=== PATIENT | male | born 1940 | race Caucasian/White ===

== ENCOUNTER 2019-04-20 10:39 | Observation (INO) | payer OTHER ==
[2019-04-20 11:06] LABS: Absolute Lymphocytes (CBC) 2.2 K/uL (0.7-4.9); Eosinophils % 1.3 % (0-4.4); Hematocrit 44.3 % (39.6-49.0); Lymphocytes % 23.9 % (15.3-44.8); MPV 10.2 fL (7.6-11.3); Monocytes % 6.6 % (3.3-12.3); RBC Red Blood Cell Count 4.54 M/uL (4.33-5.43)
[2019-04-20] MEDS ORDERED: ONDANSETRON 4 MG/2 ML VIAL ONE (11:14)
[2019-04-20] MEDS ORDERED: NA CHLORIDE 0.9% 500 ML ONE (11:14)
[2019-04-20] MEDS ORDERED: ATROPINE SULF 1 MG/10 ML SYR IV ONE (11:14)
[2019-04-20 11:24] LABS: BUN Blood Urea Nitrogen 22 mg/dL (7-18); Bicarbonate 29 mmol/L (21-32); Glucose Level 117 mg/dL (74-106); Potassium 3.9 mmol/L (3.5-5.1); Sodium Level 142 mmol/L (136-145)
[2019-04-20 11:25] LABS: Magnesium 2.3 mg/dL (1.8-2.4); NT PRO-BNP 1280 pg/mL (<450); Troponin (Emerg Dept Use Only) < 0.02 ng/mL (0.0-0.045)
--- NOTE | 2019-04-20 11:48 | EDPHYS ---
Physician Documentation [facility] Name: Robert Mckenzie Age: 78 yrs Sex: Male : 1940 Arrival Date: 04/20/2019 Time: 10:43 Bed 20 Private MD: ED Physician Robb Gil HPI: 04/20 10:56 This 78 yrs old Male presents to ER via EMS with complaints of dizziness, low er rn rate. 10:56 The patient presents with dizziness, feeling faint. Onset: The symptoms/episode rn began/occurred this morning. Context: occurred at home, occurred while the patient was standing. Modifying factors: The symptoms are alleviated by nothing, the symptoms are aggravated by nothing. Severity of symptoms: At their worst the symptoms were moderate in the emergency department the symptoms have improved. The patient has not experienced similar symptoms in the past. Reports dizziness upon getting out of bed, lightheaded, feels like was going to pass out, improved now, has afib and takes medication for it, no recent changes in medication, took his metoprolol this AM. . Historical: - Allergies: 10:50 Levaquin; la1 - Home Meds: 11:33 Eliquis 5 mg oral tab 1 tab 2 times per day [Active]; metoprolol tartrate 100 mg Oral tw2 tab 1 tab 2 times per day [Active]; prednisone 5 mg Oral tab once daily [Active]; Zytiga 250 mg oral tab 4 tabs once daily [Active]; - PMHx: 11:33 Atrial Fib; Hypertension; Prostate cancer; tw2 - Immunization history:: Adult Immunizations up to date. - Social history:: Smoking status: Patient/guardian denies using tobacco. - Ebola Screening: : No symptoms or risks identified at this time. - Family history:: not pertinent. - Hospitalizations: : No recent hospitalization is reported. ROS: 10:58 Constitutional: Negative for fever, chills, and weight loss, Eyes: Negative for injury, rn pain, redness, and discharge, Neck: Negative for injury, pain, and swelling, Cardiovascular: Negative for chest pain, palpitations, and edema, Respiratory: Negative for shortness of breath, cough, wheezing, and pleuritic chest pain, Abdomen/GI: + nausea, negative for abd pain MS/Extremity: Negative for injury and deformity, Skin: Negative for injury, rash, and discoloration, Neuro: + generalized weakness, no focal abnormality Exam: 10:58 Constitutional: This is a well developed, well nourished patient who is awake, alert, rn and in no acute distress. Head/Face: Normocephalic, atraumatic. Eyes: Pupils equal round and reactive to light, extra-ocular motions intact. Lids and lashes normal. Conjunctiva and sclera are non-icteric and not injected. Cornea within normal limits. Periorbital areas with no swelling, redness, or edema. ENT: MMM Cardiovascular: Irregular, bradycardic, no murmur Respiratory: Lungs have equal breath sounds bilaterally, clear to auscultation. No increased work of breathing, no retractions or nasal flaring. Abdomen/GI: soft, non-tender MS/ Extremity: Pulses equal, no cyanosis. Neurovascular intact. Full, normal range of motion. Equal circumference. Neuro: Awake and alert, GCS 15, oriented to person, place, time, and situation. Cranial nerves II-XII grossly intact. Motor strength 5/5 in all extremities. Sensory grossly intact. Cerebellar exam normal. Vital Signs: 10:50 BP 176 / 76; Pulse 42; Resp 16; Pulse Ox 94% on R/A; la1 11:09 BP 152 / 48; Pulse 46; Resp 19; Temp 98.6; Pulse Ox 94% on R/A; tw2 11:10 Pulse Ox 91% on R/A; tw2 11:25 BP 152 / 48; Pulse 55; Resp 17; Pulse Ox 97% on 2 lpm NC; tw2 11:45 BP 165 / 65; Pulse 63; Resp 17; Pulse Ox 97% on 2 lpm NC; tw2 12:02 BP 145 / 55; Pulse 46; Resp 16; Pulse Ox 96% on 2 lpm NC; tw2 12:33 BP 152 / 67; Pulse 50; Resp 17; Pulse Ox 100% on 2 lpm NC; tw2 12:58 BP 142 / 59; Pulse 47; Resp 17; Pulse Ox 98% on 2 lpm NC; tw2 11:10 pt placed on 2L nc at this time, will continue to monitor tw2 MDM: 10:44 Patient medically screened. rn 11:39 ED course: COnsulted with Dr. Bonilla, requests consult with cardiology prior to kinesiology internship. . 11:45 ED course: Consulted with Dr. Mendiola, states does not sound like needs pacemaker at rn this point, would admit and let medication wear off, and reeval. Dr. Bonilla contacted again and will admit. . 11:46 Differential diagnosis: cardiac arrhythmia, hypovolemia, idiopathic dizziness, rn near-syncope, symptomatic bradycardia. Data reviewed: vital signs, nurses notes, lab test result(s), and as a result, I will admit patient. Counseling: I had a detailed discussion with the patient and/or guardian regarding: the historical points, exam findings, and any diagnostic results supporting the discharge/admit diagnosis, lab results, the need for further work-up and treatment in the hospital. Response to treatment: the patient's symptoms have mildly improved after treatment, and as a result, I will admit patient. ED course: . 04/20 10:53 Order name: CBC with Diff; Complete Time: 11: rn 04/20 10:53 Order name: Basic Metabolic Panel; Complete Time: 11: rn 04/20 10:53 Order name: Troponin (emerg Dept Use Only); Complete Time: 11: rn 04/20 10:53 Order name: N-Terminal Pro-brain Natriuretic Peptide; Complete Time: 11: rn 04/20 10:53 Order name: Magnesium; Complete Time: 11: rn 04/20 12:49 Order name: Urine Dipstick--Ancillary (enter results) em1 04/20 10:53 Order name: IV Start; Complete Time: 11:02 rn 04/20 10:53 Order name: EKG; Complete Time: 10:53 rn 04/20 10:53 Order name: EKG - Nurse/Tech; Complete Time: 10:57 rn 04/20 11:14 Order name: EKG Electrocardiogram EDDC 04/20 13:05 Order name: Urine Dipstick-Ancillary EDDC 04/20 10:53 Order name: Monitor; Complete Time: 10:57 rn Administered Medications: 11:00 Drug: Zofran 4 mg Route: IVP; Site: right antecubital; tw2 12:34 Follow up: Response: No adverse reaction; Nausea is decreased tw2 11:02 Drug: Atropine 0.5 mg Route: IVP; Site: right antecubital; tw2 11:30 Follow up: Response: No adverse reaction tw2 11:07 Drug: NS 0.9% 500 ml Route: IV; Rate: bolus; Site: right antecubital; tw2 12:33 Follow up: Response: No adverse reaction; IV Status: Completed infusion; IV Intake: tw2 500ml Disposition: 04/20/19 11:47 Hospitalization ordered by Filipe Bonilla for Observation. Preliminary diagnosis are Bradycardia, unspecified, Dehydration, Near Syncope. - Bed requested for Telemetry/MedSurg (observation). - Status is Observation. tw2 - Condition is Stable. - Problem is new. - Symptoms have improved. UTI on Admission? No Signatures: Dispatcher [employer] EDMS Robb Gil MD MD rn Martinez, Eric em1 Rick Burns RN RN la1 Venessa Perez RN RN tw2 Corrections: (The following items were deleted from the chart) 12:35 11:47 Hospitalization Ordered by Filipe Bonilla MD for Observation. Preliminary diagnosis em1 is Bradycardia, unspecified; Dehydration; Near Syncope. Bed requested for Telemetry/MedSurg (observation). Status is Observation. Condition is Stable. Problem is new. Symptoms have improved. UTI on Admission? No. rn 13:22 12:35 04/20/2019 11:47 Hospitalization Ordered by Filipe Bonilla MD for Observation. tw2 Preliminary diagnosis is Bradycardia, unspecified; Dehydration; Near Syncope. Bed requested for Telemetry/MedSurg (observation). Status is Observation. Condition is Stable. Problem is new. Symptoms have improved. UTI on Admission? No. em1
--- NOTE | 2019-04-20 11:48 | ER ---
Nurse's Notes [facility] Name: Robert Mckenzie Age: 78 yrs Sex: Male : 1940 Arrival Date: 04/20/2019 Time: 10:43 Bed 20 Private MD: Diagnosis: Bradycardia, unspecified;Dehydration;Near Syncope Presentation: 04/20 10:49 Presenting complaint: Patient states: I was feeling really dizzy at home, EMS reports la1 HR in the 40s. Transition of care: patient was not received from another setting of care. Onset of symptoms was April 20, 2019. Risk Assessment: Do you want to hurt yourself or someone else? Patient reports no desire to harm self or others. Initial Sepsis Screen: Does the patient meet any 2 criteria? No. Patient's initial sepsis screen is negative. Does the patient have a suspected source of infection? No. Patient's initial sepsis screen is negative. Care prior to arrival: None. 10:49 Method Of Arrival: EMS: [facility] la1 10:49 Acuity: JOSEPH 2 la1 Triage Assessment: 10:53 General: Appears in no apparent distress. Behavior is appropriate for age. Pain: Denies tw2 pain. Historical: - Allergies: 10:50 Levaquin; la1 - Home Meds: 11:33 Eliquis 5 mg oral tab 1 tab 2 times per day [Active]; metoprolol tartrate 100 mg Oral tw2 tab 1 tab 2 times per day [Active]; prednisone 5 mg Oral tab once daily [Active]; Zytiga 250 mg oral tab 4 tabs once daily [Active]; - PMHx: 11:33 Atrial Fib; Hypertension; Prostate cancer; tw2 - Immunization history:: Adult Immunizations up to date. - Social history:: Smoking status: Patient/guardian denies using tobacco. - Ebola Screening: : No symptoms or risks identified at this time. - Family history:: not pertinent. - Hospitalizations: : No recent hospitalization is reported. Screenin:52 Abuse screen: Denies threats or abuse. Nutritional screening: No deficits noted. tw2 Tuberculosis screening: No symptoms or risk factors identified. Fall Risk Secondary diagnosis (15 points) impaired mobility. Assessment: 10:50 General: Appears in no apparent distress. Behavior is calm, cooperative, appropriate tw2 for age. Pain: Denies pain. Neuro: Reports dizziness. Cardiovascular: Heart tones S1 S2 Patient's skin is warm and dry. Respiratory: Airway is patent Respiratory effort is even, unlabored, Respiratory pattern is regular, symmetrical, Breath sounds are clear bilaterally. GI: Abdomen is flat, Bowel sounds present X 4 quads. GI: Reports nausea. : No signs and/or symptoms were reported regarding the genitourinary system. EENT: No signs and/or symptoms were reported regarding the EENT system. Derm: Skin is dry. Musculoskeletal: Range of motion: intact in all extremities. 11:25 Reassessment: Patient appears in no apparent distress at this time. Patient and/or tw2 family updated on plan of care and expected duration. Pain level reassessed. Patient states feeling better. 11:45 Reassessment: Patient appears in no apparent distress at this time. Patient and/or tw2 family updated on plan of care and expected duration. Pain level reassessed. Patient states feeling better. 12:09 Reassessment: Patient appears in no apparent distress at this time. No changes from tw2 previously documented assessment. Patient and/or family updated on plan of care and expected duration. Pain level reassessed. Vital Signs: 10:50 BP 176 / 76; Pulse 42; Resp 16; Pulse Ox 94% on R/A; la1 11:09 BP 152 / 48; Pulse 46; Resp 19; Temp 98.6; Pulse Ox 94% on R/A; tw2 11:10 Pulse Ox 91% on R/A; tw2 11:25 BP 152 / 48; Pulse 55; Resp 17; Pulse Ox 97% on 2 lpm NC; tw2 11:45 BP 165 / 65; Pulse 63; Resp 17; Pulse Ox 97% on 2 lpm NC; tw2 12:02 BP 145 / 55; Pulse 46; Resp 16; Pulse Ox 96% on 2 lpm NC; tw2 12:33 BP 152 / 67; Pulse 50; Resp 17; Pulse Ox 100% on 2 lpm NC; tw2 12:58 BP 142 / 59; Pulse 47; Resp 17; Pulse Ox 98% on 2 lpm NC; tw2 11:10 pt placed on 2L nc at this time, will continue to monitor tw2 ED Course: 10:43 Patient arrived in ED. iw 10:44 Robb Gil MD is Attending Physician. rn 10:47 Venessa Perez, RN is Primary Nurse. tw2 10:49 Bed in low position. Call light in reach. Side rails up X2. school lunch monitor on. Pulse tw2 ox on. NIBP on. 10:50 Triage completed. la1 10:50 Arm band placed on left wrist. EKG completed in triage. Results shown to MD. la1 11:02 Initial lab(s) drawn, by me, sent to lab. Inserted saline lock: 20 gauge in right ms antecubital area, using aseptic technique. Blood collected. Missed attempt(s): 20 gauge in right forearm. Bleeding controlled, band aid applied, catheter tip intact. 11:11 EKG done, by ED staff, reviewed by Robb Gil MD. tc 11:47 Filipe Bonilla MD is Hospitalizing Provider. rn 12:56 No provider procedures requiring assistance completed. Patient admitted, IV remains in tw2 place. Administered Medications: 11:00 Drug: Zofran 4 mg Route: IVP; Site: right antecubital; tw2 12:34 Follow up: Response: No adverse reaction; Nausea is decreased tw2 11:02 Drug: Atropine 0.5 mg Route: IVP; Site: right antecubital; tw2 11:30 Follow up: Response: No adverse reaction tw2 11:07 Drug: NS 0.9% 500 ml Route: IV; Rate: bolus; Site: right antecubital; tw2 12:33 Follow up: Response: No adverse reaction; IV Status: Completed infusion; IV Intake: tw2 500ml Intake: 12:33 IV: 500ml; Total: 500ml. tw2 Outcome: 11:47 Decision to Hospitalize by Provider. rn 12:57 Admitted to Med/surg accompanied by tech, via wheelchair, room 425, with oxygen, with tw2 chart, Report called to MYLES Escoto 12:57 Condition: stable 12:57 Instructed on the need for admit. 13:22 Patient left the ED. tw2 Signatures: Disha Lord RN RN iw Solis, Maria ms Nieto, Roman, MD MD rn Callis, Tiffany, custom harvester EKG Ttc Rick Burns RN RN la1 Venessa Perez RN RN tw2
[2019-04-20 12:59] LABS: Urine Blood 2+ (NEG); Urine Glucose NEGATIVE (NEG); Urine Protein NEGATIVE (NEG); Urine Specific Gravity 1.015 (1.005-1.030); Urine pH 5.5 (5.0-7.0)
[2019-04-20] MEDS ORDERED: ONDANSETRON 4 MG/2 ML VIAL IV PRN (12:59)
[2019-04-20 13:40] VITALS: BMI 26.4
[2019-04-20] MEDS: NA CHLORIDE 0.9% 1,000 ML IV SCH ×2 (13:47→23:16)
--- NOTE | 2019-04-20 14:51 | P.SSS ---
Patient History Date of Service: 04/20/19 Reason for admission: LOW HR. 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 HE TOOK HIS USUAL DOSE OF METOPROLOL AND ELIQUIS BUT HAD WEAK EPISODE AND HR DROPPED TO 30. IN ER THEY GAVE HIM ATROPIN AND HR NOW IS 40. HE IS STILL WEAK AND DIZZY. Allergies levofloxacin [From Levaquin] Allergy (Severe, Verified 01/26/12 00:05) Anaphylaxis Home Medications: Abiraterone Acetate [Zytiga] 1,000 mg PO 1200 04/20/19 Apixaban [Eliquis] 5 mg PO BID 04/20/19 Metoprolol Tartrate [Lopressor] 100 mg PO BID 04/20/19 predniSONE [Deltasone] 5 mg PO DAILY 04/20/19 - Past Medical/Surgical History Has patient received pneumonia vaccine in the past: Yes Diabetic: No -: afib -: htn -: prostate cancer - Social History Smoking Status: Former smoker Alcohol use: No CD- Drugs: Yes Caffeine use: Yes Place of Residence: Home Review of Systems 10-point ROS is otherwise unremarkable General: Weakness, Malaise Physical Examination - Vital Signs Temperature: 98.6 F Blood Pressure: 142/59 Pulse: 47 Respirations: 17 - Physical Exam General: Mild distress HEENT: Atraumatic, PERRLA, Mucous membr. moist/pink, EOMI, Sclerae nonicteric Neck: Supple, 2+ carotid pulse no bruit, No LAD, Without JVD or thyroid abnormality Respiratory: Clear to auscultation bilaterally, Normal air movement Cardiovascular: Regular rate/rhythm, Normal S1 S2 Gastrointestinal: Normal bowel sounds, No tenderness Musculoskeletal: No tenderness Integumentary: No rashes Neurological: Normal gait, Normal speech, Normal strength at 5/5 x4 extr, Normal tone, Normal affect Lymphatics: No axilla or inguinal lymphadenopathy - Studies Laboratory Data (last 24 hrs) 04/20/19 10:59: Sodium 142, Potassium 3.9, BUN 22 H, Creatinine 0.80, Glucose 117 H, Magnesium 2.3 04/20/19 10:59: WBC 9.1, Hgb 14.8, Hct 44.3, Plt Count 153 - Diagnosis (Problem(s)) (1) A-fib Current Visit: Yes Status: Acute Plan: ON MEDS ALREADY BUT NOT ABLE TO TOLERATE BETA MILLI. Qualifiers: Atrial fibrillation type: chronic Qualified Code(s): I48.2 - Chronic atrial fibrillation (2) Bradycardia Current Visit: Yes Status: Acute Plan: DR. MEDRANO CALLED IN. MAY NOT DO WELL WITH B MILLI. WILL FU WITHOUT IT. IF HIGH RATE MAY NEED FURTHER EPS EVAL. - Disposition Disposition: ROUTINE DISCHARGE
--- NOTE | 2019-04-20 15:02 | EKG ---
Test Date: 2019-04-20 Test Time: 10:47:49 Visual Merchandising Director: LA MEASUREMENT RESULTS: Intervals: Rate: 42 MT: 148 QRSD: 80 QT: 506 QTc: 422 [place]: P: 105 MT: 148 QRS: 53 T: 56 INTERPRETIVE STATEMENTS: Marked sinus bradycardia with premature atrial complexes in a pattern of bigeminy Nonspecific ST abnormality Abnormal ECG Compared to ECG 04/20/2019 10:45:55 No significant changes Electronically Signed On 04-20-19 15:00:53 CDT by Wilbert Mendiola
--- NOTE | 2019-04-20 15:02 | EKG ---
Test Date: 2019-04-20 Test Time: 10:45:55 Hand Slitter: LA MEASUREMENT RESULTS: Intervals: Rate: 46 CO: 142 QRSD: 80 QT: 510 QTc: 446 [place]: P: 39 CO: 142 QRS: 52 T: 55 INTERPRETIVE STATEMENTS: Sinus bradycardia with premature atrial complexes Nonspecific ST and T wave abnormality Abnormal ECG Compared to ECG 01/25/2012 20:46:23 ST (T wave) deviation now present Sinus rhythm no longer present Ventricular premature complex(es) no longer present Electronically Signed On 04-20-19 15:00:57 CDT by Wilbert Mendiola
[2019-04-20 20:01] LABS: T3 Free 2.49 pg/mL (2.18-3.98)
--- NOTE | 2019-04-20 20:31 | CON ---
Chief Complaint: Numbness and tingling and other symptoms of hypotension. History Of Present Illness: Mr. Mckenzie is a gentleman, who has prostate cancer, under control. He is on some newer prostate cancer treatments, seems to be in a stage remission right now. He has had chronic atrial fib, although he is not in AFib now, in fact the first EKG that he has not been in AF ib since about 2016 is the one today. He takes metoprolol succinate 100 mg twice a day and Eliquis f or his AFib. He has been doing that for some time that was required to keep his heart rate okay when he was in AFib. He is in sinus rhythm. His heart rate is extremely slow in the high 30s. His last dose of metoprolol was this morning 100 mg metoprolol succinate. We will stop any further metoprolo l and see what happens with his rhythm. The best thing would be for him to go back in AFib, but at t his point, I think he seemed to be more stable. Physical Examination: General: He is 6 feet 1 inch tall, 200 pounds. Alert, oriented, pleasant, appears to be older than his stated age of 78. Poor dentition. Lungs: Clear. Heart: Rhythm is regular, but some premature beats and a pause. The pause sometimes reach up 2 seco nds in duration. There is no significant murmur or rub. Abdomen: Soft. Extremities: Reveal no significant edema. Distal pulses are palpable. Laboratory Data: His creatinine is 0.8. Troponin less than 0.02. His EKG does not show infarction, injury, or ischemia. It does show sinus bradycardia with PACs and long pauses. Impression: The patient will probably be intolerant of beta-blockers. We may end up getting a pacem sudha and better treat his atrial fibrillation, but at the present time, we need a day or 2 just to se e if he can get his heart rate up in sinus rhythm and we will see just what needs to be done and a li ttle bit more time to see exactly what is going on. We should check a set of thyroid tests on him as well. LIZETH/MOISE Voice ID: [id number] Report ID: [id number]
[2019-04-20] MEDS: APIXABAN 5 MG TABLET PO SCH (21:11)
[2019-04-21 06:06] LABS: Absolute Lymphocytes (CBC) 2.2 K/uL (0.7-4.9); Basophils % 0.7 % (0-1.3); Eosinophils % 1.5 % (0-4.4); Hematocrit 41.1 % (39.6-49.0); Lymphocytes % 28.4 % (15.3-44.8); MPV 10.1 fL (7.6-11.3); Monocytes % 6.6 % (3.3-12.3); RBC Red Blood Cell Count 4.18 M/uL (4.33-5.43)
[2019-04-21 06:21] LABS: BUN Blood Urea Nitrogen 18 mg/dL (7-18); Bicarbonate 30 mmol/L (21-32); Glucose Level 88 mg/dL (74-106); Sodium Level 145 mmol/L (136-145)
[2019-04-21] MEDS: NA CHLORIDE 0.9% 1,000 ML IV SCH (08:35)
[2019-04-21] MEDS: APIXABAN 5 MG TABLET PO SCH ×2 (08:35→20:34)
--- NOTE | 2019-04-21 14:51 | PN ---
Subjective: Mr. Mckenzie's heart rhythm remains sinus with second-degree AV block. Long pauses up t o 2 seconds are seen. I think he needs a pacemaker. He has missed 2 doses of his metoprolol, he sanjiv uld not have any effects from it, his heart is so slow, so will recommend a pacemaker. I will ask hi m to be transferred under the care of Dr. Burgos in [place]. I will put a pacemaker and he will remain on Eliquis until the day before his pacemaker is actually done. LIZETH/MOISE Voice ID: [id number] Report ID: [id number]
[2019-04-21 16:58] VITALS: O2SAT 94
[2019-04-21 20:36] VITALS: BP 124/58; TEMP 97.4
== END 2019-04-21 20:50 | disposition short-term general hospital (02) ==
LOC: ER 10:39 → ERHOLD 11:53 → 4TH 13:01
PROVIDERS: ADMIT Internal Medicine; ATTEND Internal Medicine
DX: I48.2 Chronic atrial fibrillation (principal); R00.1 Bradycardia, unspecified; E86.0 Dehydration; R55 Syncope and collapse; R94.31 Abnormal electrocardiogram [ECG] [EKG]; Z79.01 Long term (current) use of anticoagulants; Z79.899 Other long term (current) drug therapy; Z85.46 Personal history of malignant neoplasm of prostate
CPT/HCPCS: 96361; 93005 ×2; 85025 ×2; 80048 ×2; 36415 ×2; 83735; 84443; 81003; 84484; 84481; 84439; 83880; 96375; 96374; 99285; J7030 ×3; J2405; G0378 ×2

== ENCOUNTER 2019-04-29 11:13 | Emergency (ER) | payer OTHER ==
--- OUTSIDE RECORDS SUMMARY | 2019-04-29 11:16 | XMS REPORT | Clinical Summary ---
:1940 Author Organization [facility] Address [address] [place] [address] Care Team Providers Name Role Phone Asked, No Pcp Primary Care Provider Unavailable Allergies Active Allergy Reactions Severity Noted Date Comments Ciprofloxacin 04/23/2019 Levofloxacin Anaphylaxis High 04/21/2019 Diazepam 04/23/2019 Pass out Medications Medication Sig Dispensed Refills Start Date End Date Status apixaban (ELIQUIS) 5 mg Take 5 mg by 0 Active tablet mouth 2 (two) times a day. predniSONE (DELTASONE) Take 5 mg by 0 Active 5 mg tablet mouth daily. abiraterone (ZYTIGA) Take 750 mg by 0 Active 250 mg chemo tablet mouth daily. amIODarone (PACERONE) Take 400mg BID x 56 tablet 0 04/25/2019 Active 200 MG tablet 1 week, then 400mg daily x 1 week, then 200mg daily Active Problems Problem Noted Date Sick sinus syndrome 04/21/2019 Encounters Date Type Specialty Care Team Description 04/23/2019 Surgery Procedural Hakan Burgos Pacemaker insertion Cardiology MD Ruel new or replacement (dual Chamber Implant) [03909 (CPT)] 04/21/2019 - Hospital Encounter Cardiology Blaine Palacios, Sick sinus syndrome 04/25/2019 ([facility]) (Primary Dx) Mary Lou De La Paz MD 04/21/2019 Intake Access N/A after 04/28/2018 Social History Tobacco Use Types Packs/Day Years Used Date Former Smoker Sex Assigned at Date Recorded Not on file Job Start Date Occupation Industry Not on file Not on file Not on file Travel History Travel Start Travel End No recent travel history available. Last Filed Vital Signs Vital Sign Reading Time Taken Blood Pressure 156/82 04/25/2019 3:17 PM CDT Pulse 78 04/25/2019 3:17 PM CDT Temperature 36.2 C (97.1 F) 04/25/2019 3:17 PM CDT Respiratory Rate 16 04/25/2019 3:17 PM CDT Oxygen Saturation 93% 04/25/2019 3:17 PM CDT Inhaled Oxygen Concentration - - Weight 92.1 kg (203 lb) 04/25/2019 3:35 AM CDT Height 185.4 cm (6' 1") 04/21/2019 11:10 PM CDT Body Mass Index 26.78 04/21/2019 11:10 PM CDT Plan of Treatment Health Maintenance Due Date Last Done Comments COLONOSCOPY SCREENING 1992 SHINGLES VACCINES (#1) 1992 65+ PNEUMOCOCCAL VACCINE (1 of 2 - PCV13) 2007 INFLUENZA VACCINE 05/10/2019 Implants Implanted Type Area Conveyor Feeder Offbearer Device Shelf Model / Identifier Expiration Serial / Date Lot Belle Xt Mri - [id number] Cardiac Pacemaker N/A: [employer] CRM [id number] / Implanted: Qty: 1 on 04/23/2019 by Hakan Burgos MD Generators N/A [employer] / Lead, Pacemaker Bipolar Fix Forming Atrial And Ventricular Steroid Eluting 52 Centimeter Capsure Fix Novus - [id number] Cardiac Pacing N/A: [employer] CRM 02/15/2021 [id number] / Implanted: 04/23/2019 (Quantity not on file) Leads or N/A [employer] [id number] / Electrodes or [id number] Accessories Lead, Pacemaker Atrial And Ventricular 58 Centimeter Capsure Fix Novus System - [id number] Cardiac Pacing N/A: [employer]TR[employer]IC [facility] 01/01/2021 [id number] / Implanted: 04/23/2019 (Quantity not on file) Leads or N/A [employer] [id number] / Electrodes or [id number] Accessories Envelope Pcemkr Antbactl Fully Resorb Aigisrxr - [id number] Cardiovascular N/A: [employer] INC [id number] / Implanted: 04/23/2019 (Quantity not on file) Implants N/A / Procedures Procedure Name Priority Date/Time Associated Comments Diagnosis ESTIMATED GFR Routine 04/25/2019 5:48 Results for this AM CDT procedure are in the results section. HC COMPLETE BLD COUNT Routine 04/25/2019 5:48 Results for this W/AUTO DIFF AM CDT procedure are in the results section. BASIC METABOLIC PANEL Routine 04/25/2019 5:48 Results for this AM CDT procedure are in the results section. ECG PRE/POST OP Routine 04/24/2019 6:18 Results for this AM CDT procedure are in the results section. ESTIMATED GFR Routine 04/24/2019 6:10 Results for this AM CDT procedure are in the results section. HC COMPLETE BLD COUNT Routine 04/24/2019 6:10 Results for this W/AUTO DIFF AM CDT procedure are in the results section. BASIC METABOLIC PANEL Routine 04/24/2019 6:10 Results for this AM CDT procedure are in the results section. XR CHEST 1 VW PORTABLE Routine 04/23/2019 8:46 Results for this PM CDT procedure are in the results section. ECG PRE/POST OP STAT 04/23/2019 7:56 Results for this PM CDT procedure are in the results section. EP PACEMAKER INSERTION Routine 04/23/2019 7:07 Results for this NEW OR REPLACEMENT PM CDT procedure are in the results section. ECHOCARDIOGRAM 2D Routine 04/23/2019 12:10 Results for this COMPLETE W MMODE PM CDT procedure are in SPECTRAL COLOR DOPPLER the results (18050) section. HC COMPLETE BLD COUNT Routine 04/23/2019 6:15 Results for this W/AUTO DIFF AM CDT procedure are in the results section. ESTIMATED GFR Routine 04/23/2019 4:00 Results for this AM CDT procedure are in the results section. MAGNESIUM LEVEL Routine 04/23/2019 4:00 Results for this AM CDT procedure are in the results section. PHOSPHORUS LEVEL Routine 04/23/2019 4:00 Results for this AM CDT procedure are in the results section. BASIC METABOLIC PANEL Routine 04/23/2019 4:00 Results for this AM CDT procedure are in the results section. PHOSPHORUS LEVEL Routine 04/22/2019 5:50 Results for this PM CDT procedure are in the results section. MAGNESIUM LEVEL Routine 04/22/2019 5:50 Results for this PM CDT procedure are in the results section. PARTIAL THROMBOPLASTIN Routine 04/22/2019 5:50 Results for this TIME (PTT) PM CDT procedure are in the results section. PARTIAL THROMBOPLASTIN STAT 04/22/2019 11:44 Results for this TIME (PTT) AM CDT procedure are in the results section. B NATRIURETIC PEPTIDE Routine 04/22/2019 11:44 Results for this AM CDT procedure are in the results section. THYROID STIMULATING Routine 04/22/2019 11:27 Results for this HORMONE AM CDT procedure are in the results section. XR CHEST 1 VW PORTABLE Routine 04/22/2019 8:52 Results for this AM CDT procedure are in the results section. TROPONIN Timed 04/22/2019 5:09 Results for this AM CDT procedure are in the results section. ANTI XA, UNFRACTIONATED Routine 04/22/2019 1:20 Results for this AM CDT procedure are in the results section. PARTIAL THROMBOPLASTIN Routine 04/22/2019 1:20 Results for this TIME (PTT) AM CDT procedure are in the results section. PROTHROMBIN TIME WITH Routine 04/22/2019 1:20 Results for this INR AM CDT procedure are in the results section. HC COMPLETE BLD COUNT Routine 04/22/2019 1:20 Results for this W/AUTO DIFF AM CDT procedure are in the results section. ECG 12-LEAD Routine 04/22/2019 1:19 Results for this AM CDT procedure are in the results section. ESTIMATED GFR Routine 04/22/2019 12:32 Results for this AM CDT procedure are in the results section. COMPREHENSIVE METABOLIC Routine 04/22/2019 12:32 Results for this PANEL AM CDT procedure are in the results section. URINALYSIS SCREEN AND Routine 04/21/2019 11:25 Results for this MICROSCOPY, WITH REFLEX PM CDT procedure are in TO CULTURE the results section. URINE CULTURE Routine 04/21/2019 11:25 Results for this PM CDT procedure are in the results section. ESTIMATED GFR STAT 04/21/2019 11:12 Results for this PM CDT procedure are in the results section. BASIC METABOLIC PANEL STAT 04/21/2019 11:12 Results for this PM CDT procedure are in the results section. TROPONIN Timed 04/21/2019 11:09 Results for this PM CDT procedure are in the results section. after 04/28/2018 Results Estimated GFR (04/25/2019 5:48 AM CDT)Only the most recent of5 resultswithin the time period is included. Estimated GFR 90 mL/min/1.73 [facility] Comment: [facility]2 [facility] CatergoryUnitsInterpretation G1 >=90 Normal or high G2 60-89Mildly decreased M7m43-46Uzxwxq to moderately decreased D2s80-11Otkkigghtf to severely decreased G4 15-29Severely decreased G5 <15Kidney failure The eGFR was calculated using the Chronic Kidney Disease Epidemiology Collaboration (CKD-EPI) equation. Interpretation is based on recommendations of the National Kidney Foundation-Kidney Disease Outcomes Quality Initiative (NKF-KDOQI) published in 2014. Specimen Plasma specimen Performing Organization Address City/[facility]/Zipcode Phone Number [facility] DEPARTMENT OF PATHOLOGY AND [address] [place] [address] [address] [address] CBC with platelet and differential (04/25/2019 5:48 AM CDT)Only the most recent of4 resultswithin the time period is included. WBC 9.63 4.50 - 11.00 [facility]/uL [facility] RBC 4.09 (L) 4.40 - 6.00 [facility] HGB 13.6 (L) 14.0 - 18.0 [facility] g/dL [facility] HCT 41.3 41.0 - 51.0 % [facility] MCV 101.0 (H) 82.0 - 100.0 [facility] MCH 33.3 27.0 - 34.0 pg [facility] MCHC 32.9 31.0 - 37.0 [facility] - SD 47.9 37.0 - 55.0 fL [facility] MPV 12.0 8.8 - 13.2 fL [facility] Platelet count 120 (L) 150 - 400 k/uL [facility] Nucleated RBC 0.00 /100 WBC [facility] Neutrophils 78.1 (H) 39.0 - 69.0 % [facility] Lymphocytes 12.8 (L) 25.0 - 45.0 % [facility] Monocytes 7.1 0.0 - 10.0 % [facility] Eosinophils 1.3 0.0 - 5.0 % [facility] Basophils 0.4 0.0 - 1.0 % [facility] Immature granulocytes 0.3Comment: 0.0 - 1.0 % [facility] "Immature HOSPITAL granulocytes" (promyelocytes , myelocytes, metamyelocytes ) Specimen Blood Performing Organization Address City/[facility] Phone Number [facility] DEPARTMENT OF PATHOLOGY AND [address] [place] [phone] Basic metabolic panel (04/25/2019 5:48 AM CDT)Only the most recent of4 resultswithin the time period is included. [facility] Sodium 142 135 - 148 mEq/L [facility] Potassium 3.6 3.5 - 5.0 mEq/L [facility] Chloride 102 98 - 112 mEq/L [facility] CO2 29 24 - 31 mEq/L [facility] Anion gap 11@ANIO 7 - 15 mEq/L [facility] BUN 10 8 - 23 mg/dL [facility] Creatinine 0.73 0.70 - 1.20 mg/dL [facility] Glucose 115 (H) 65 - 99 mg/dL [facility] Calcium 9.0 8.8 - 10.2 mg/dL [facility] Specimen Plasma specimen Performing Organization Address City/[facility]ode Phone Number [facility] DEPARTMENT OF PATHOLOGY AND [address] [place] [address] ECG Pre/Post Op-Tomorrow (04/24/2019 6:18 AM CDT)Only the most recent of2 resultswithin the time period is included. [facility] Ventricular rate 137 [facility] MUSE Atrial rate 133 [facility] MUSE QRSD interval 76 [facility] MUSE QT interval 302 [facility] QTC interval 456 [facility] MUSE QRS axis 1 76 [facility] MUSE T wave axis 239 [facility] MUSE EKG impression Atrial fibrillation with rapid ventricular response-ST & T wave abnormality, consider inferior ischemia or digitalis effect-ST & T wave abnormality, consider anterolateral ischemia or digitalis effect-Abnormal ECG- In automated comparison with ECG of [facility] MUSE 23-APR-2019 19:56,-Significant changes have occurred- Specimen Narrative Performed At Performing Organization Address City/State/Zipcode Phone Number [facility] [employer] [address] [place] [address] XR Chest 1 Vw Portable (04/23/2019 8:46 PM CDT)Only the most recent of2 resultswithin the time period is included. Specimen Narrative Performed At EXAMINATION:XR CHEST 1 VW PORTABLE RADIELO CLINICAL HISTORY:pneumothorax COMPARISON:To previous study from 04/22/2019 IMPRESSION: Transvenous pacemaker has been placed. There is no evidence of pneumothorax. The heart is normal in appearance, and mild congestive changes are developing. [facility]-[id number] Procedure Note Hm Interface, Radiology Results Incoming - 04/23/2019 10:31 PM CDT EXAMINATION: XR CHEST 1 VW PORTABLE CLINICAL HISTORY: pneumothorax COMPARISON: To previous study from 04/22/2019 IMPRESSION: Transvenous pacemaker has been placed. There is no evidence of pneumothorax. The heart is normal in appearance, and mild congestive changes are developing. [facility]-[id number] Performing Organization Address City/State/Zipcode Phone Number [facility] [address] [place] [address] Electrophysiology procedure (04/23/2019 7:07 PM CDT) Specimen Narrative Performed At [employer] PIPE FITTER: TESSY Burgos. COMPLICATIONS: None. ESTIMATED BLOOD LOSS: 10 mL. SPECIMEN REMOVED: None. PROCEDURES PERFORMED: 1.Moderate sedation, administered and monitored by physician. 2.Dual chamber pacemaker implantation. 3.Ultrasound-guided vascular access. PREOPERATIVE DIAGNOSES: 1.Sick sinus syndrome. 2.Paroxysmal atrial fibrillation. POSTOPERATIVE DIAGNOSES: 1.Sick sinus syndrome. 2.Paroxysmal atrial fibrillation. HISTORY OF PRESENT ILLNESS: The patient is a 78-year-old gentleman with a history of tachycardia-bradycardia syndrome, was referred for a pacemaker implantation. PROCEDURE IN DETAIL: The patient was brought to the EP lab in a fasting state.Informed consent was obtained.The patient was prepped and draped in the usual sterile fashion. Ultrasound-guided vascular access obtained percutaneously using 2 separate sticks.A 4-cm incision made.Using cautery and blunt dissection prepectoral pocket was created.Guidewires were introduced into the pocket and exchanged for intravascular sheath through which a RV lead was advanced and positioned in the mid RV septum, right atrial lead was advanced to this right atrial appendage.Sheath was peeled.Leads were sutured to the prepectoral fascia. Pocket was irrigated, adequate hemostasis was achieved.The leads were connected to pulse generator, which was then placed in Tyrx antibiotic pouch and sutured to the pocket floor.Pocket was closed using 2-0 Vicryl in 3 layers followed by Dermabond with Prineo.The patient tolerated the procedure well with no hemodynamic, neurologic, or respiratory sequelae. FINDINGS: The patient has a Medtronic device, model#W1DR01, serial #[id number]. Atrial lead is Medtronic lead model #732493, serial #[id number].RV lead is Medtronic lead model #476134, serial #[id number].Measurements demonstrated P waves of 1.7 millivolts, pacing threshold of 0.6 volts at 0.5 milliseconds, pacing impedance of 399 ohms.R waves of 8 millivolts, pacing threshold 0.7 volts at 0.5 milliseconds, pacing impedance of 684 ohms.The patient is programmed to DDDR, lower rate limit of 70, upper rate limit of 130 with nominal paced sensed AV intervals to promote intrinsic AV conduction. CONCLUSION: Successful dual chamber pacemaker implantation. RECOMMENDATIONS: The patient will complete the appropriate postprocedure wound care and activity restriction. Performing Organization Address City/State/Zipcode Phone Number [facility] [address] [place] [address] Echocardiogram complete w contrast and 3D if needed (04/23/2019 12:10 PM CDT) Specimen Narrative Performed At [facility] Echocardiography Report [address]Name:ROBERT CABELLO [facility].ID:[id number] .Date: 04/23/2019 Refer.MD:KATIE WICK MD Exam Time: 10:51:00 AM Study Type:Routine Echo Height:73inWeight: 204lb BSA: 2.17 m2 DOBAge:1940,78Y Sex: MALEBP:136/62 HR:60 bpm Sonogrphr: KAROLINA Perez/Sobeida Atkins Pat. Stat.:Inpatient Room:A 743 Study Status:Final Echo Event ID:[id number] Order ID:[id number] Reason for Study:Sick Sinus Syndrome Procedures:2D Echo, Colorflow Doppler Race:C SUMMARY: Normal biventricular systolic function. Normal RAP. Mild pulmonary hypertension based on RVSP estimate. FINDINGS: LV: LV size is normal. Concentric left ventricular remodeling. LVEF is normal. Overall wall motion is normal. Estimated EFis 65-69% RV: RV size is normal. RV systolic function is normal. LA: LA volume is moderately to severely enlarged. RA: RA size is normal. AO: Aortic root diameter is normal. SIOBHAN: No pericardial effusion. SVn:Inferior vena cava is normal. Normal collapse of IVC during inspirationis consistent with normal RA pressure. AV: No structural AV abnormalities noted. MV: No structural MV abnormalities noted. Mild mitral regurgitation. PV: No structural PV abnormalities noted. A trace of pulmonic regurgitation. TV: No structural TV abnormalities noted. Mild tricuspid regurgitation [place]: Normal diastolic function. Other:Estimated PA systolic pressure is 40-45 mmHg, assuming a meanRAP of 5 mmHg. MEASUREMENTS: 2D Parasternal [place] LVOT 1.9 cmLA Ds4.2 cm LVIDd4.7 cmIndex2.1 cm/m Ao An1.8 cm LVIDs3.6 cmAo Rtd 3.1 cm Index1.4 cm/m LV%fs 23.4 % LV Igcn136.6 g(122-174) IVSd 1.1 cmLVM Index 92 g/m2 LVPWd1.2 cmRWT0.5 LA Sng Plane LA Area 29.2 cm2(8.8-23.4) LA Vol 105.8 ml Index48.8 ml/m LA LngAx 6.4 cm RA Sng Plane RA Area 28.2 cm2(8.3-19.5) RA Vol 104.9 ml Index48.3 ml/m RA LngAx 6.4 cm Signed 04/23/2019 08:03 PM Víctor De La Fuente M.D. Procedure Note Interface, Radiology Results In - 04/23/2019 8:03 PM CDT Echocardiography Report [address] [place] [address] Pat.Name: ROBERT CABELLO Pat.ID: [id number] .Date: 04/23/2019 Refer.MD: KATIE WICK MD Exam Time: 10:51:00 AM Study Type:Routine Echo Height: 73in Weight: 204lb BSA: 2.17 m2 Age: 11 1940,78Y Sex: MALE BP: 136/62 HR: 60 bpm Sonogrphr: KAROLINA Perez/Sobeida Atkins Pat. Stat.:Inpatient Room: A 3 Study Status:Final Echo Event ID:[id number] Order ID: [id number] Reason for Study:Sick Sinus Syndrome Procedures:2D Echo, Colorflow Doppler Race: C SUMMARY: Normal biventricular systolic function. Normal RAP. Mild pulmonary hypertension based on RVSP estimate. FINDINGS: LV: LV size is normal. Concentric left ventricular remodeling. LV EF is normal. Overall wall motion is normal. Estimated EF is 65-69% RV: RV size is normal. RV systolic function is normal. LA: LA volume is moderately to severely enlarged. RA: RA size is normal. AO: Aortic root diameter is normal. SIOBHAN: No pericardial effusion. SVn: Inferior vena cava is normal. Normal collapse of IVC during inspiration is consistent with normal RA pressure. AV: No structural AV abnormalities noted. MV: No structural MV abnormalities noted. Mild mitral regurgitation. PV: No structural PV abnormalities noted. A trace of pulmonic regurgitation. TV: No structural TV abnormalities noted. Mild tricuspid regurgitation [place]: Normal diastolic function. Other: Estimated PA systolic pressure is 40-45 mmHg, assuming a mean RAP of 5 mmHg. MEASUREMENTS: 2D Parasternal [place] LVOT 1.9 cm LA Ds 4.2 cm LVIDd 4.7 cm Index 2.1 cm/m Ao An 1.8 cm LVIDs 3.6 cm Ao Rtd 3.1 cm Index 1.4 cm/m LV%fs 23.4 % LV Mass 199.6 g (122-174) IVSd 1.1 cm LVM Index 92 g/m2 LVPWd 1.2 cm RWT 0.5 LA Sng Plane LA Area 29.2 cm2 (8.8-23.4) LA Vol 105.8 ml Index 48.8 ml/m LA LngAx 6.4 cm RA Sng Plane RA Area 28.2 cm2 (8.3-19.5) RA Vol 104.9 ml Index 48.3 ml/m RA LngAx 6.4 cm Signed 04/23/2019 08:03 PM Víctor De La Fuente M.D. Performing Organization Address [facility] Cent[facility]ode Phone Number [facility] [address] [place] [address] Phosphorus level (04/23/2019 4:00 AM CDT)Only the most recent of2 resultswithin the time period is included. Phosphorus 2.8 2.4 - 4.5 mg/dL [facility] Specimen Plasma specimen Performing Organization Address [facility]/Zipcode Phone Number [facility] DEPARTMENT OF PATHOLOGY AND [address] [place] [address] GENOM[address] MED[address] [address] Magnesium level (04/23/2019 4:00 AM CDT)Only the most recent of2 resultswithin the time period is included. Magnesium 2.1 1.6 - 2.4 mg/dL [facility] Specimen Plasma specimen Performing Organization Address City/[facility] Cent[facility]ode Phone Number [facility] DEPARTMENT OF PATHOLOGY AND [address] [place] [address] Partial thromboplastin time, activated (04/22/2019 5:50 PM CDT)Only the most recent of3 resultswithin the time period is included. PTT 59.0 (H) 23.0 - 36.0 [facility] Comment: [facility] PTT therapeutic range for unfractionated heparin is 61.0-112.0 seconds which corresponds to Anti-Xa 0.3-0.7 U/ml. Specimen Blood Performing Organization Address [facility] Phone Number [facility] DEPARTMENT OF PATHOLOGY AND [address] [place] [phone] B natriuretic peptide (04/22/2019 11:44 AM CDT) [facility] Signature BNP 524 (H) 0 - 100 pg/mL [facility] Specimen Blood Performing Organization Address [facility] Phone Number [facility] DEPARTMENT OF PATHOLOGY AND [address] [place] [address] Thyroid stimulating hormone (04/22/2019 11:27 AM CDT) [facility] TSH 1.65 0.27 - 4.20 uIU/mL [facility] Specimen Plasma specimen Performing Organization Address [facility] Cent[facility]ode Phone Number [facility] DEPARTMENT OF PATHOLOGY AND [address] [place] [phone] Troponin (04/22/2019 5:09 AM CDT)Only the most recent of2 resultswithin the time period is included. Pathologist [facility] Troponin 0.027 0.000 - 0.040 [facility] Comment: ng/[facility] changed methodology effective: 02/13/2019 at 10:00 am The new method has a 99th percentile cutoff of 0.040 ng/mL Specimen Plasma specimen Performing Organization Address City/[facility]/Zipcode Phone Number [facility] DEPARTMENT OF PATHOLOGY AND [address] [place] [phone] [place] [phone] Prothrombin time with INR (04/22/2019 1:20 AM CDT) [facility] Prothrombin time 16.6 (H) 11.5 - 14.5 [facility] INR 1.4 [place] Comment: [facility] International Normalized Ratio (INR) is a therapeutic HOSPITAL monitoring tool for patients who are stable on oral anticoagulant therapy. An INR of 2.0-3.0 is suggested for deep vein thrombosis/pulmonary embolism. Specimen Blood Performing Organization Address City/[facility] Cent[facility]ode Phone Number [facility] DEPARTMENT OF PATHOLOGY AND [address] [place] [phone] Anti Xa, unfractionated (04/22/2019 1:20 AM CDT) [facility] Anti Xa, >1.10 (H) 0.30 - 0.70 [place] unfractionated Comment: U/mL [facility] Therapeutic Range:0.30 - 0.70 U/mL [facility] XAUFH results called to and read back by JOSE MANCUSO/[employer] (name/location) at _ 04/22/201901:53 (date/time) by __GD Specimen Blood Performing Organization Address City/[facility] Cent[facility]ode Phone Number [facility] DEPARTMENT OF PATHOLOGY AND [address] [place] [phone] ECG 12 lead (04/22/2019 1:19 AM CDT) Ventricular rate 54 [facility]USE Atrial rate 54 [facility] SC interval 116 [facility] QRSD interval 82 [facility] QT interval 476 [facility] QTC interval 451 [facility] P axis 1 -11 [facility] QRS axis 1 -16 [facility] MUSE T wave axis -29 [facility] MUSE EKG impression Sinus bradycardia with marked sinus arrhythmia with occasional premature ventricular complexes and premature atrial complexes-Inferior infarct , age undetermined-Abnormal ECG-No previous ECGs available-Electronically Signed By Leandro Thompson MD ([id number]) on [facility] MUSE 04/22/2019 1:35:24 PM Specimen Narrative Performed At Performing Organization Address City/[facility]/Zipcode Phone Number [facility] MUSE [address] [place] [address] Comprehensive metabolic panel (04/22/2019 12:32 AM CDT) Sodium 144 135 - 148 [facility] mEq/L [facility] Potassium 3.7 3.5 - 5.0 [facility] mEq/L [facility] Chloride 107 98 - 112 mEq/L [facility] CO2 28 24 - 31 mEq/L [facility] Anion gap 9@ANIO 7 - 15 mEq/L [facility] BUN 13 8 - 23 mg/dL [facility] Creatinine 0.67 (L) 0.70 - 1.20 [facility] mg/dL [facility] Glucose 100 (H) 65 - 99 mg/dL [facility] Calcium 9.0 8.8 - 10.2 [facility] mg/dL [facility] Protein 6.1 (L) 6.3 - 8.3 g/dL [facility] Comment: HOSPITAL [place] 4.6-7.0 g/dL 1 week 4.4-7.6 g/dL 7 months-1year5.1-7.3 g/dL 1-2 years5.6-7.5 g/dL >3 years6.0-8.0 g/dL 18-150 6.3-8.3 g/dL Albumin 3.4 (L) 3.5 - 5.0 g/dL [facility] A/G ratio 1.3 0.7 - 3.8 [facility] Alkaline phosphatase 45 40 - 129 U/L [facility] AST 18 10 - 50 U/L [facility] ALT 17 5 - 50 U/L [facility] Total bilirubin 0.5 0.0 - 1.2 [facility] mg/dL [facility] Specimen Plasma specimen Performing Organization Address City/[facility] Phone [facility] DEPARTMENT OF PATHOLOGY AND [address] [place] [address] [facility] [place] [id number] [place] [address] Urinalysis screen and microscopy, with reflex to culture (04/21/2019 11:25 PM CDT) Specimen site Clean catch [facility] Color, UA Straw [facility] Appearance, UA Clear [facility] Specific gravity, UA 1.005 1.001 - 1.035 [facility] pH, UA 5.0 5.0 - 8.5 [facility] Protein, UA Negative Negative [facility] Glucose, UA Negative Negative [facility] Ketones, UA Negative Negative [facility] Bilirubin, UA Negative Negative [facility] Blood, UA Moderate (A) Negative [facility] Nitrite, UA Negative Negative [facility] Urobilinogen, UA <2.0 <2.0 [facility] Leukocyte esterase, Negative Negative [facility] Epithelial cells, UA <1 /HPF [facility] WBC, UA None seen 0 - 1 /HPF [facility] RBC, UA <1 0 - 5 /HPF [facility] Bacteria, UA None seen None seen [facility] Yeast, UA None seen [facility] Yeast with None seen [facility] pseudohyphae, HOSPITAL Specimen Urine Performing Organization Address City/State/Zipcode Phone Number [facility] DEPARTMENT OF PATHOLOGY AND [address] [place] [id number] Urine culture (04/21/2019 11:25 PM CDT) Urine culture SEE COMMENTComment: [facility] Bacteriuria screen HOSPITAL negative. Specimen Performing Organization Address City/State/[facility] Centercode Phone Number [facility] DEPARTMENT OF PATHOLOGY AND [address] [place], [place] [id number] [address] [address] after 04/28/2018 Insurance Payer Benefit Plan / Subscriber ID Effective Dates Phone Address Type Group MEDICARE MEDICARE PART A xxxxxxxxxxx 2007-Present [place], [place] Medicare AND B S (Home) [place] [address] Advance Directives Patient has advance care planning documents on file. For more information, please contact:[address] [address]
[2019-04-29 11:40] LABS: Absolute Lymphocytes (CBC) 1.6 K/uL (0.7-4.9); Hematocrit 42.6 % (39.6-49.0); Lymphocytes % 20.4 % (15.3-44.8); Monocytes % 9.2 % (3.3-12.3); RBC Red Blood Cell Count 4.35 M/uL (4.33-5.43)
[2019-04-29 11:46] LABS: Protime INR 1.68
[2019-04-29 11:53] LABS: ALT/SGPT 26 U/L (12-78); AST/SGOT 20 U/L (15-37); Albumin 3.6 g/dL (3.4-5.0); Alkaline Phosphatase 60 U/L (45-117); BUN Blood Urea Nitrogen 13 mg/dL (7-18); Bicarbonate 31 mmol/L (21-32); Bilirubin Direct 0.2 mg/dL (0-0.2); Bilirubin Total 0.6 mg/dL (0.2-1.0); Glucose Level 107 mg/dL (74-106); Magnesium 2.2 mg/dL (1.8-2.4); NT PRO-BNP 1214 pg/mL (<450); Potassium 3.1 mmol/L (3.5-5.1); Protein, Total 6.9 g/dL (6.4-8.2); Sodium Level 144 mmol/L (136-145); Troponin (Emerg Dept Use Only) < 0.02 ng/mL (0.0-0.045)
--- NOTE | 2019-04-29 13:10 | RAD REPORT ---
EXAM DESCRIPTION: RAD - Chest Single View - 04/29/2019 11:39 am CLINICAL HISTORY: CHEST PAIN Chest pain. COMPARISON: <Comparisons> FINDINGS: Portable technique limits examination quality. The lungs are emphysematous but grossly clear. The heart is normal in size. No displaced fractures.Du al lead pacer device is present. IMPRESSION: No acute intrathoracic process suspected.
[2019-04-29 14:44] LABS: Urine Blood 1+ (NEG); Urine Glucose NEGATIVE (NEG); Urine Protein TRACE (NEG); Urine Specific Gravity 1.015 (1.005-1.030)
--- NOTE | 2019-04-29 15:08 | EDPHYS ---
Physician Documentation [facility] Name: Robert Mckenzie Age: 78 yrs Sex: Male : 1940 Arrival Date: 04/29/2019 Time: 11:14 Bed 4 Private MD: ED Physician Nathaniel Rollins HPI: 04/29 14:56 This 78 yrs old Male presents to ER via EMS with complaints of Chest Pain. gs 14:56 The patient or guardian reports chest pain that is located primarily in the anterior gs chest wall. Onset: acutely, just prior to arrival. The pain does not radiate. Associated signs and symptoms: Pertinent positives: lightheadedness, Pertinent negatives: shortness of breath, syncope. The chest pain is described as a heaviness. Duration: The patient or guardian reports multiple episodes, that are intermittent, that wax and wane, with no pattern, the episodes last approximately 3 second(s). Modifying factors: The symptoms are alleviated by nothing. the symptoms are aggravated by nothing. Severity of pain: At its worst the pain was moderate in the emergency department the pain has resolved. Historical: - Allergies: 11:17 Levaquin; bp - Home Meds: 11:17 Eliquis 5 mg Oral tab 1 tab 2 times per day [Active]; prednisone 5 mg Oral tab once bp daily [Active]; Zytiga 250 mg Oral tab 4 tabs once daily [Active]; metoprolol tartrate 100 mg Oral tab 1 tab 2 times per day [Active]; Amiodarone Oral [Active]; - PMHx: 11:17 Atrial Fib; Hypertension; Prostate Cancer; COPD; bp - Immunization history:: Adult Immunizations up to date. - Social history:: Smoking status: unknown. - Ebola Screening: : No symptoms or risks identified at this time. ROS: 14:56 All other systems are negative. gs Exam: 14:56 Head/Face: Normocephalic, atraumatic. Eyes: Pupils equal round and reactive to light, gs extra-ocular motions intact. Lids and lashes normal. Conjunctiva and sclera are non-icteric and not injected. Cornea within normal limits. Periorbital areas with no swelling, redness, or edema. ENT: Nares patent. No nasal discharge, no septal abnormalities noted. Tympanic membranes are normal and external auditory canals are clear. Oropharynx with no redness, swelling, or masses, exudates, or evidence of obstruction, uvula midline. Mucous membranes moist. Neck: Trachea midline, no thyromegaly or masses palpated, and no cervical lymphadenopathy. Supple, full range of motion without nuchal rigidity, or vertebral point tenderness. No Meningismus. Chest/axilla: Normal chest wall appearance and motion. Nontender with no deformity. No lesions are appreciated. 14:56 Constitutional: The patient appears alert, awake. 14:56 Cardiovascular: Rate: normal, Rhythm: irregularly irregular. 14:56 ECG was reviewed by the Attending Physician. Vital Signs: 11:17 BP 164 / 116; Pulse 86; Resp 17; Temp 98; Pulse Ox 99% ; Weight 90.72 kg; Height 6 ft. bp 1 in. (185.42 cm); 11:50 BP 153 / 88; Pulse 82; Resp 20; Pulse Ox 92% on R/A; bp 12:43 BP 160 / 92; Pulse 76; Resp 20; Pulse Ox 95% ; bp 13:35 BP 161 / 90; Pulse 76; Resp 21; Pulse Ox 94% ; bp 15:00 BP 148 / 82; Pulse 76; Resp 18; Pulse Ox 96% on R/A; aj1 11:17 Body Mass Index 26.39 (90.72 kg, 185.42 cm) bp MDM: 11:36 Patient medically screened. gs 14:56 Differential diagnosis: abnormal EKG, coronary artery disease chest wall pain. Data gs reviewed: vital signs, nurses notes. Counseling: I had a detailed discussion with the patient and/or guardian regarding: the historical points, exam findings, and any diagnostic results supporting the discharge/admit diagnosis, radiology results, the need for outpatient follow up. Response to treatment: the patient's symptoms have resolved after treatment, the patient's pain is gone. 04/29 11:20 Order name: Basic Metabolic Panel; Complete Time: 11:59 bp 04/29 11:20 Order name: CBC with Diff; Complete Time: 11:59 bp 04/29 11:20 Order name: LFT's; Complete Time: 11:59 bp 04/29 11:20 Order name: Magnesium; Complete Time: 11:59 bp 04/29 11:20 Order name: NT PRO-BNP; Complete Time: 11:59 bp 04/29 11:20 Order name: PT-INR; Complete Time: 11:59 bp 04/29 11:20 Order name: Troponin (emerg Dept Use Only); Complete Time: 11:59 bp 04/29 11:20 Order name: XRAY Chest (1 view); Complete Time: 13:20 bp 04/29 11:20 Order name: EKG; Complete Time: 11:22 bp 04/29 11:20 Order name: Cardiac monitoring; Complete Time: 11:21 bp 04/29 12:32 Order name: Troponin (emerg Dept Use Only) 04/29 12:32 Order name: Troponin (Emerg Dept Use Only); Complete Time: 14:55 EDMS 04/29 14:30 Order name: Urine Dipstick--Ancillary (enter results); Complete Time: 14:55 ms 04/29 11:20 Order name: EKG - Nurse/Tech; Complete Time: 11:21 bp 04/29 11:20 Order name: IV Saline Lock; Complete Time: 11:34 bp 04/29 11:20 Order name: Labs collected and sent; Complete Time: 11:34 bp 04/29 11:20 Order name: O2 Per Protocol; Complete Time: 11:21 bp 04/29 11:20 Order name: O2 Sat Monitoring; Complete Time: 11:21 bp EC:56 Rate is 82 beats/min. Rhythm is regular. QRS interval is normal. QT interval is gs prolonged. T waves are Flattened. Clinical impression: Abnormal EKG without significant change and Atrial Fibrillation. Interpreted by me. Administered Medications: 15:30 Drug: Potassium Effervescent Tablet 50 mEq Route: PO; aj1 15:34 Follow up: Response: No adverse reaction aj1 Disposition: 04/29/19 15:07 Discharged to Home. Impression: Chest pain, unspecified. - Condition is Stable. - Discharge Instructions: Nonspecific Chest Pain. - Medication Reconciliation Form, Thank You Letter, Antibiotic Education, Prescription Opioid Use, SBAR form form. - Follow up: Private Physician; When: 2 - 3 days; Reason: Re-evaluation by your physician. Signatures: Dispatcher [employer] Regina Awad RN RN aj1 Nathaniel Rollins MD MD gs Peltier, Brian, RN RN bp Corrections: (The following items were deleted from the chart) 15:34 15:07 04/29/2019 15:07 Discharged to Home. Impression: Chest pain, unspecified. aj1 Condition is Stable. Forms are SBAR form, Medication Reconciliation Form, Thank You Letter, Antibiotic Education, Prescription Opioid Use. Follow up: Private Physician; When: 2 - 3 days; Reason: Re-evaluation by your physician. gs
--- NOTE | 2019-04-29 15:08 | ER ---
Nurse's Notes [facility] Name: Robert Mckenzie Age: 78 yrs Sex: Male : 1940 Arrival Date: 04/29/2019 Time: 11:14 Bed 4 Private MD: Diagnosis: Chest pain, unspecified Presentation: 04/29 11:14 Presenting complaint: EMS states: CHEST PAIN TODAY, D/C x4 DAYS AGO WITH NEW PACER. bp Transition of care: patient was not received from another setting of care. Onset of symptoms was April 29, 2019. Risk Assessment: Do you want to hurt yourself or someone else? Patient reports no desire to harm self or others. Initial Sepsis Screen: Does the patient meet any 2 criteria? No. Patient's initial sepsis screen is negative. Does the patient have a suspected source of infection? No. Patient's initial sepsis screen is negative. Care prior to arrival: None. 11:14 Method Of Arrival: EMS: [facility] bp 11:14 Acuity: JOSEPH 2 bp Triage Assessment: 11:17 General: Appears in no apparent distress. comfortable, Behavior is cooperative, bp appropriate for age, anxious. Pain: Complains of pain in chest. EENT: No deficits noted. Neuro: No deficits noted. Cardiovascular: Reports chest pain, Rhythm is sinus rhythm. Respiratory: Airway is patent Respiratory effort is even, unlabored, Respiratory pattern is regular, symmetrical. GI: No signs and/or symptoms were reported involving the gastrointestinal system. : No signs and/or symptoms were reported regarding the genitourinary system. Derm: No deficits noted. Musculoskeletal: No deficits noted. Historical: - Allergies: 11:17 Levaquin; bp - Home Meds: 11:17 Eliquis 5 mg Oral tab 1 tab 2 times per day [Active]; prednisone 5 mg Oral tab once bp daily [Active]; Zytiga 250 mg Oral tab 4 tabs once daily [Active]; metoprolol tartrate 100 mg Oral tab 1 tab 2 times per day [Active]; Amiodarone Oral [Active]; - PMHx: 11:17 Atrial Fib; Hypertension; Prostate Cancer; COPD; bp - Immunization history:: Adult Immunizations up to date. - Social history:: Smoking status: unknown. - Ebola Screening: : No symptoms or risks identified at this time. Screenin:48 Abuse screen: Denies threats or abuse. Denies injuries from another. Nutritional bp screening: No deficits noted. Tuberculosis screening: No symptoms or risk factors identified. Fall Risk None identified. Assessment: 11:17 General: SEE TRIAGE NOTE. bp 12:42 Reassessment: ALL CURRENT ORDERS COMPLETED, RESULTS PENDING FOR DISPO. bp 13:35 Reassessment: PT AMBULATORY TO BATHROOM WITH STEADY GAIT, STATES S/S RESOLVED. bp 15:00 Reassessment: Patient and/or family updated on plan of care and expected duration. Pain aj1 level reassessed. General: Appears in no apparent distress. comfortable, Behavior is calm, cooperative, appropriate for age. Pain: Denies pain. Neuro: Level of Consciousness is awake, alert, obeys commands, Oriented to person, place, time, situation. Cardiovascular: Reports chest pain, that has now resolved Heart tones S1 S2 present Patient's skin is warm and dry. Rhythm is paced. Respiratory: Airway is patent Respiratory effort is even, unlabored, Respiratory pattern is regular, symmetrical. GI: No signs and/or symptoms were reported involving the gastrointestinal system. : No signs and/or symptoms were reported regarding the genitourinary system. EENT: No signs and/or symptoms were reported regarding the EENT system. Derm: No signs and/or symptoms reported regarding the dermatologic system. Skin is pink, warm \T\ dry. normal. Musculoskeletal: No signs and/or symptoms reported regarding the musculoskeletal system. Circulation, motion, and sensation intact. Vital Signs: 11:17 BP 164 / 116; Pulse 86; Resp 17; Temp 98; Pulse Ox 99% ; Weight 90.72 kg; Height 6 ft. bp 1 in. (185.42 cm); 11:50 BP 153 / 88; Pulse 82; Resp 20; Pulse Ox 92% on R/A; bp 12:43 BP 160 / 92; Pulse 76; Resp 20; Pulse Ox 95% ; bp 13:35 BP 161 / 90; Pulse 76; Resp 21; Pulse Ox 94% ; bp 15:00 BP 148 / 82; Pulse 76; Resp 18; Pulse Ox 96% on R/A; aj1 11:17 Body Mass Index 26.39 (90.72 kg, 185.42 cm) bp ED Course: 11:14 Patient arrived in ED. bp 11:15 Triage completed. bp 11:17 Nathaniel Rollins MD is Attending Physician. gs 11:17 Arm band placed on. bp 11:19 Michele Del Toro, RN is Primary Nurse. bp 11:30 Inserted saline lock: 20 gauge in left forearm, using aseptic technique. Patient bp maintains SpO2 saturation greater than 95% on room air. 11:40 XRAY Chest (1 view) In Process Unspecified. EDMS 11:48 Patient has correct armband on for positive identification. Placed in gown. Bed in low bp position. Call light in reach. Side rails up X2. credit cashier on. Pulse ox on. NIBP on. 13:32 Repeat lab(s) drawn. by in, sent to lab. [facility] 13:45 Urine collected: clean catch specimen, clear. [facility] 14:08 Troponin (emerg Dept Use Only) Sent. bp 14:48 Report received from MYLES Bautista. aj1 15:33 No provider procedures requiring assistance completed. IV discontinued, intact, aj1 bleeding controlled, No redness/swelling at site. Pressure dressing applied. Administered Medications: 15:30 Drug: Potassium Effervescent Tablet 50 mEq Route: PO; aj1 15:34 Follow up: Response: No adverse reaction aj Outcome: 15:07 Discharge ordered by . 15:34 Discharged to home via wheelchair. aj1 15:34 Condition: good 15:34 Discharge instructions given to patient, Instructed on discharge instructions, follow up and referral plans. Demonstrated understanding of instructions, follow-up care. 15:34 Patient left the ED. aj1 Signatures: Dispatcher [employer] EDNE Regina Pederson RN RN aj Yvette Proctor [facility] Nathaniel Rollins MD MD Michele Del Toro, RN RN bp Corrections: (The following items were deleted from the chart) 15:33 15:31 Reassessment: Patient and/or family updated on plan of care and expected aj1 duration. Pain level reassessed. aj1 15:33 15:31 General: Appears in no apparent distress. comfortable, Behavior is calm, aj1 cooperative, appropriate for age, aj1 15:33 15:31 Pain: Denies pain. aj1 aj1 15:33 15:31 Neuro: Level of Consciousness is awake, alert, obeys commands, Oriented to aj1 person, place, time, situation, aj1 15:33 15:31 Cardiovascular: Reports chest pain, that has now resolved Heart tones S1 S2 aj1 present Patient's skin is warm and dry. Rhythm is paced aj1 15:31 Respiratory: Airway is patent Respiratory effort is even, unlabored, Respiratory aj1 pattern is regular, symmetrical, aj1 15:31 GI: No signs and/or symptoms were reported involving the gastrointestinal system. aj1 aj1 15: : No signs and/or symptoms were reported regarding the genitourinary system. aj1aj1 : 15:31 EENT: No signs and/or symptoms were reported regarding the EENT system. aj1 aj1 15:31 Derm: No signs and/or symptoms reported regarding the dermatologic system. Skin aj1 is pink, warm \T\ dry. normal, aj1 15:31 Musculoskeletal: No signs and/or symptoms reported regarding the musculoskeletal aj1 system. Circulation, motion, and sensation intact. aj1
[2019-04-29] MEDS ORDERED: POTASSIUM 25 MEQ EFFERV TAB ONE (15:17)
[2019-04-29 15:43] VITALS: TEMP 98
[2019-04-29 15:48] VITALS: BP 148/82; O2SAT 96
--- NOTE | 2019-04-30 10:21 | EKG ---
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
== END 2019-04-29 15:34 | disposition home or self-care (01) ==
LOC: ER 11:13
DX: R07.9 Chest pain, unspecified (principal); R42 Dizziness and giddiness; I48.91 Unspecified atrial fibrillation; I10 Essential (primary) hypertension; C61 Malignant neoplasm of prostate; J44.9 Chronic obstructive pulmonary disease, unspecified; Z79.01 Long term (current) use of anticoagulants
CPT/HCPCS: 36415; 71045; 80048; 80076; 81003; 83735; 83880; 84484; 85025; 85610; 93005; 99285